=== PATIENT | female | born 2000 | race Two or more races ===

== ENCOUNTER 2019-04-14 06:19 | Inpatient (IN) ==
[2019-04-14] MEDS ORDERED: PITOCIN IVP ONE (06:51)
[2019-04-14] MEDS ORDERED: D5 1/2 NS 1000 ML 1,000 ML IV SCH (07:00)
[2019-04-14] MEDS ORDERED: D5 1/2 NS 1L W PITOCIN 20 UNITS/L 20 UNITS/1,000 ML BAG IV ONE (07:03)
[2019-04-14] MEDS ORDERED: D5 1/2 NS 1000 ML 1,000 ML IV ONE (07:03)
[2019-04-14 07:20] LABS: BASOPHILS # (AUTO) 0.1 X10^3/uL (0.0-0.1); BASOPHILS % (AUTO) 0.5 % (0.2-1.0); EOSINOPHILS % (AUTO) 0.2 % (0.9-2.9); HEMATOCRIT 33.9 % (36.0-47.0); HEMOGLOBIN 11.2 g/dL (12.0-16.0); LYMPHOCYTES # (AUTO) 1.5 X10^3/uL (1.3-2.9); LYMPHOCYTES % (AUTO) 13.9 % (21.0-51.0); MEAN CORPUSCULAR HEMOGLOBIN 24.1 pg (27.0-34.0); MEAN CORPUSCULAR HGB CONC 33.2 g/dL (33.0-35.0); MEAN CORPUSCULAR VOLUME 72.6 fL (80.0-100.0); MEAN PLATELET VOLUME 8.7 fL (7.4-11.0); MONOCYTES # (AUTO) 0.5 x10^3/uL (0.3-0.8); MONOCYTES % (AUTO) 4.8 % (0.0-13.0); NEUTROPHILS # (AUTO) 8.7 x10^3/uL (2.2-4.8); NEUTROPHILS % (AUTO) 80.6 % (42.0-75.0); PLATELET COUNT 252 X10^3/uL (150.0-450.0); RED BLOOD COUNT 4.67 X10^6/uL (3.5-5.4); RED CELL DISTRIBUTION WIDTH 18.3 % (11.6-16.5); WHITE BLOOD COUNT 10.8 X10^3/uL (3.6-10.0)
[2019-04-14 07:27] LABS: BLOOD UREA NITROGEN 7 mg/dL (7-18); CALCIUM 8.6 mg/dL (8.5-10.1); CARBON DIOXIDE 17.6 mmol/L (21-32); CHLORIDE 105 mmol/L (98-107); CREATININE 0.67 mg/dL (0.55-1.02); SODIUM 137 mmol/L (136-145); eGFR NON BLACK RACES > 60 (>60)
[2019-04-14 07:29] LABS: PLATELET MORPHOLOGY COMMENT NORMAL (NORMAL)
[2019-04-14 07:30] LABS: HYPOCHROMASIA SLIGHT; MICROCYTOSIS SLIGHT
[2019-04-14] MEDS ORDERED: XYLOCAINE 1 % (PLAIN) ONE (08:50)
[2019-04-14] MEDS ORDERED: MOTRIN TAB 800 MG PO PRN (09:39)
[2019-04-14] MEDS ORDERED: PHENERGAN INJ 25 MG IM PRN (09:39)
[2019-04-14] MEDS ORDERED: D5 1/2 NS 1000 ML 1,000 ML with PITOCIN 20 UNITS IV SCH ×2 (10:00)
[2019-04-15 04:03] LABS: HEMATOCRIT 31.2 % (36.0-47.0); HEMOGLOBIN 10.1 g/dL (12.0-16.0)
[2019-04-15] MEDS ORDERED: AFLURIA II4 or FLUARIX II4 IM ONE (10:51)
[2019-04-16 09:54] VITALS: BP 110/69
== END 2019-04-16 11:00 | disposition home or self-care (01) | DRG 807 ==
LOC: LD 06:19 → MED/SURG 11:21
PROVIDERS: ADMIT Obstetrics & Gynecology Obstetrics; ATTEND Obstetrics & Gynecology Obstetrics
DX: O70.1 Second degree perineal laceration during delivery; Z37.0 Single live birth; Z3A.39 39 weeks gestation of pregnancy
CPT/HCPCS: S5010